=== PATIENT | male | born 1960 | race Caucasian/White ===

== ENCOUNTER → 2017-09-28 | Outpatient (CLI) | payer OTHER ==
[2017-09-28 10:48] LABS: BLOOD UREA NITROGEN 21 mg/dl (7-18); CALCIUM 9.1 mg/dl (8.5-10.1); CARBON DIOXIDE 27 mmol/L (21-32); CREATININE 1.13 mg/dl (0.60-1.40); GLUCOSE 97 mg/dl (70-99); POTASSIUM 4.6 mmol/L (3.5-5.1); SODIUM 140 mmol/L (136-145); URIC ACID 7.8 mg/dl (2.6-7.2)
== END ==
LOC: C.LAB1850 09:09
PROVIDERS: ATTEND Internal Medicine
DX: M79.673 Pain in unspecified foot (principal)